=== PATIENT | male | born 1995 | race Caucasian/White ===

== ENCOUNTER 2018-10-30 19:40 | Emergency (ER) | payer MEDICAID ==
[~2018-10-30] VITALS: Ht 177.8 cm; Wt 65.0 kg
[2018-10-30] MEDS ORDERED: LIDOCAINE HCL/PF 1% 10 MG/ML 5ML VIAL IJ ONE (20:30)
[2018-10-30] MEDS ORDERED: BACITRACIN ZINC OINT UDPKT TOP ONE (20:30)
[2018-10-30] MEDS ORDERED: TETANUS, DIPHTHERIA, PERTUSSIS VAC/PF 0.5ML (>7YR OLD) IM ONE (20:30)
[2018-10-30 20:41] LABS: BASOPHILS % 0.4 % (0.0-2.0); EOSINOPHILS % 2.9 % (0.0-5.0); HEMATOCRIT. 41.3 % (42.0-52.0); HEMOGLOBIN. 14.2 g/dL (14.0-18.0); LYMPHOCYTES % 15.7 % (20.0-50.0); MEAN CORPUSCULAR VOLUME 87.5 fL (80.0-94.0); MEAN PLATELET VOLUME 9.6 fl (7.4-10.4); MONOCYTES % 6.3 % (2.0-8.0); NEUTROPHILS % 74.7 % (40.0-76.0); PLATELET 202 x1000/uL (130-400); RED BLOOD CELL COUNT 4.72 mill/uL (4.7-6.1); RED CELL DISTRIBUTION WIDTH 13.9 % (11.6-14.6)
[2018-10-30 20:45] LABS: CHLORIDE 110 mEq/L (98-107)
[2018-10-30 20:50] LABS: ETHANOL BLOOD < 10 mg/dL
[2018-10-30] MEDS ORDERED: BACITRACIN 15GM TUBE TOP NR (21:30)
[2018-10-31] MEDS ORDERED: HYDROCODONE/ACETAMINOPHEN 5/325MG TABLET PO ONE (01:00)
[2018-10-31] MEDS ORDERED: IBUPROFEN 600MG TABLET PO ONE (01:00)
[2018-10-31 02:28] LABS: *BARBITURATES SCREEN URINE NEGATIVE (NEGATIVE); *BENZODIAZEPINES SCREEN URINE NEGATIVE (NEGATIVE); *COCAINE SCREEN URINE NEGATIVE (NEGATIVE); METHADONE URINE SCREEN NEGATIVE (NEGATIVE)
[2018-10-31 02:29] LABS: *AMPHETAMINES SCREEN URINE NEGATIVE (NEGATIVE); CANNABINOID URINE SCREEN NEGATIVE (NEGATIVE); OPIATES URINE SCREEN NEGATIVE (NEGATIVE); PHENCYCLIDINE URINE SCREEN NEGATIVE (NEGATIVE)
[2018-10-31] MEDS ORDERED: QUETIAPINE FUMARATE 50MG TABLET PO STA (23:07)
[2018-11-01] MEDS ORDERED: QUETIAPINE FUMARATE 50MG TABLET PO SCH
[2018-11-01] MEDS ORDERED: QUETIAPINE FUMARATE 50MG TABLET PO STA (00:33)
[2018-11-01] MEDS: QUETIAPINE FUMARATE 50MG TABLET PO SCH ×2 (10:00→21:28)
[2018-11-02] MEDS: QUETIAPINE FUMARATE 50MG TABLET PO SCH ×2 (09:12→21:30)
[2018-11-03] MEDS: QUETIAPINE FUMARATE 50MG TABLET PO SCH (11:49)
[2018-11-03 20:00] VITALS: BP 122/71
== END 2018-11-03 20:00 | disposition home or self-care (01) ==
LOC: ER 19:40
DX: S61.511A Laceration without foreign body of right wrist, initial encounter (principal); W22.8XXA Striking against or struck by other objects, initial encounter; Y93.89 Activity, other specified; Y92.89 Other specified places as the place of occurrence of the external cause; Y99.8 Other external cause status
CPT/HCPCS: 12001; 36415; 80053; 80307; 80320; 80329; 84443; 85025; 90471; 90715; 99285; J3490; Z7610; G0480

== ENCOUNTER 2018-11-06 10:10 | Emergency (ER) | payer MEDICAID ==
[~2018-11-06] VITALS: Ht 177.8 cm; Wt 64.0 kg
[2018-11-06 10:41] VITALS: BP 109/67
== END 2018-11-06 12:00 | disposition home or self-care (01) ==
LOC: ER 10:10
DX: Z48.02 Encounter for removal of sutures (principal)
CPT/HCPCS: 99281